=== PATIENT | male | born 1950 | race Caucasian/White ===

== ENCOUNTER → 2017-03-16 | Outpatient (CLI) | payer OTHER, BC ==
[~2017-03-16] MED LIST: ACET-1256 PO; APPLTAB PO; ASPI81TA28 PO; CHOL2000 PO; CINN1CAP2 PO; CIPR-255 PO; CYCL10TA6 PO; DOXA1TAB86 PO; DTRSR4 PO; DUTA0.5C PO; IBUP-1459 PO; METH4PAK PO; MULT-225 PO; OXYC7.5T65 PO; PHEN-775 PO; SILD100T PO; VITAMIN D PO
[2017-03-16 09:40] LABS: BLOOD UREA NITROGEN 17 mg/dl (7-18); BUN/CREATININE RATIO 15.6 (10-20); CALCIUM 8.9 mg/dl (8.5-10.1); CARBON DIOXIDE 27 mmol/L (21-32); CHLORIDE 108 mmol/L (98-107); CHOLESTEROL 190 mg/dl (0-200); GLUCOSE 92 mg/dl (70-99); POTASSIUM 3.9 mmol/L (3.5-5.1); SODIUM 143 mmol/L (136-145); TRIGLYCERIDES 95 mg/dl (0-150); VERY LOW DENSITY LIPOPROT CALC 19 mg/dl
[2017-03-16 09:44] LABS: CHOLESTEROL/HDL RATIO 2.9; HDL CHOLESTEROL 65 mg/dl; LDL CHOLESTEROL CALCULATED 106 mg/dl
[2017-03-16 09:49] LABS: ESTIMATED AVERAGE GLUCOSE 128 mg/dl; HA1C FLAG Normal (Normal)
== END | disposition home or self-care (01) ==
LOC: C.LAB1850 07:08
PROVIDERS: ATTEND Internal Medicine
DX: R73.09 Other abnormal glucose (principal); R73.01 Impaired fasting glucose; N40.1 Benign prostatic hyperplasia with lower urinary tract symptoms

== ENCOUNTER → 2017-04-18 | Outpatient (CLI) | payer OTHER, BC ==
[~2017-04-18] MED LIST changes: -CIPR-255 PO; -DTRSR4 PO; -DUTA0.5C PO; -OXYC7.5T65 PO; -PHEN-775 PO
--- NOTE | 2017-04-18 14:44 | DIAGNOSTIC IMAGING REPORT ---
CHEST 2 VIEWS ROUTINE CLINICAL HISTORY: 67 year-old Male presenting with shortness of breath on exertion. TECHNIQUE: PA and lateral views the chest were obtained. COMPARISON: None. FINDINGS: Cardiomediastinal silhouette normal. Two punctate hyperdense nodules noted in the right lower lung, likely old calcified granulomas. No other focal infiltrate. No pleural effusion or pneumothorax. Osseous structures and upper abdomen normal. IMPRESSION: 1. No acute cardiopulmonary disease. Electronically signed by: Raul Pizarro 04/18/2017 2:42 PM Dictated Date/Time: 04/18/2017 2:40 PM
== END | disposition home or self-care (01) ==
LOC: C.RAD1850 14:32
PROVIDERS: ATTEND Internal Medicine
DX: R06.02 Shortness of breath (principal)

== ENCOUNTER 2017-06-23 05:34 | Emergency (ER) | payer OTHER, BC ==
[~2017-06-23] VITALS: Ht 167.6 cm; Wt 68.4 kg
[~2017-06-23 05:34] MED LIST changes: -APPLTAB PO; -CHOL2000 PO; -CINN1CAP2 PO; -CYCL10TA6 PO; -METH4PAK PO
[2017-06-23 05:43] VITALS: TEMP 36.6; Ht 167.6 cm; Wt 68.4 kg
[2017-06-23] MEDS ORDERED: DEXAMETHASONE INJ 8 MG in SYRINGE 0 ML IV STA (05:44)
[2017-06-23] MEDS ORDERED: CYCLOBENZAPRINE HCL 5 MG TAB PO STA (05:44)
[2017-06-23] MEDS ORDERED: KETOROLAC TROMETHAMINE 30 MG/ML VIAL IV STA (05:44)
[2017-06-23] MEDS ORDERED: DEXAMETHASONE SOD INJ 4 MG/ML VIAL ONE (06:00)
[2017-06-23] MEDS ORDERED: CHOL2000 PO (06:04)
--- NOTE | 2017-06-23 06:04 | EMERGENCY ROOM VISIT NOTE ---
History Report prepared by Deyanira: Javier Flores Under the Supervision of: Dr. Jose Vann D.O. First contact with patient: 05:40 Stated Complaint: BACK PAIN History of Present Illness The patient is a 67 year old male who presents to the Emergency Room with complaints of persistent back pain beginning shortly prior to arrival. He has a history of chronic back pain associated with herniated discs. He took hydrocodone for his symptoms prior to going to sleep last night. He states that he woke up with his pain shortly prior to arrival and took Tylenol. The patient states "I think I am having muscle spasms". He also complains of difficulty with urination, nausea and shortness of breath. Source of History: patient Onset: shortly prior to arrival Position: back Timing: other (persistent) Associated Symptoms: + SOB, + nausea, + urinary symptoms (difficulty with urination) Review of Systems See HPI for pertinent positives and negatives. A total of ten systems were reviewed and were otherwise negative. Past Medical & Surgical Medical Problems: (1) Herniated disc Family History No pertinent family history stated. Social History Smoking Status: Never Smoker Marital Status: Occupation Status: other Current/Historical Medications Scheduled Apple Cider Vinegar (Apple Cider Vinegar), MG PO DAILY Aspirin (Aspirin Ec), 81 MG PO DAILY Cholecalciferol (Vitamin D3), 2,000 UNITS PO DAILY Cinnamon (Cinnamon), 1,000 MG PO DAILY Doxazosin Mesylate (Doxazosin Mesylate), 4 MG PO HS Multiple Vitamin (Multi-Day Vitamins), 1 TAB PO DAILY Sildenafil Citrate (Viagra), 100 MG PO PRN Scheduled PRN Ibuprofen (Motrin), 400 MG PO BID PRN for Pain Allergies Coded Allergies: No Known Allergies (Unverified , 10/01/13) Physical Exam Vital Signs Date Time Temp Pulse Resp B/P (MAP) Pulse Ox O2 Delivery O2 Flow Rate FiO2 06/23/17 05:43 36.6 87 16 160/83 98 Room Air Physical Exam GENERAL: Awake, alert, well-appearing, in no distress HENT: Normocephalic, atraumatic. Oropharynx unremarkable. EYES: Normal conjunctiva. Sclera non-icteric. NECK: Supple. No nuchal rigidity. FROM. No JVD. RESPIRATORY: Clear to auscultation. CARDIAC: Regular rate, normal rhythm. Extremities warm and well perfused. Pulses equal. ABDOMEN: Soft, non-distended. No tenderness to palpation. No rebound or guarding. No masses. RECTAL: Deferred. MUSCULOSKELETAL: Chest examination reveals no tenderness. No joint edema. The back is symmetrical on inspection without obvious abnormality. Perispinal tenderness to palpation, right greater than left. Muscle spasms present in the right lumbar region. LOWER EXTREMITIES: Calves are equal size bilaterally and non-tender. No edema. No discoloration. NEURO: Normal sensorium. No sensory or motor deficits noted. Able to move legs. NVI distally. SKIN: No rash or jaundice noted. Medical Decision & Procedures Medications Administered Medications (Trade) Dose Ordered Sig/Hugo Route Start Time Stop Time Status Last Admin Dose Admin Ketorolac Tromethamine (Toradol Inj) 30 mg NOW STAT IV 06/23/17 05:44 06/23/17 05:46 DC 06/23/17 06:04 30 MG Cyclobenzaprine HCl (Flexeril Tab) 5 mg ONE STAT PO 06/23/17 05:44 06/23/17 05:46 DC 06/23/17 06:03 5 MG Dexamethasone Sodium Phosphate (Decadron Inj) 8 mg STK-MED ONCE .ROUTE 06/23/17 06:00 06/23/17 06:01 DC 06/23/17 06:00 8 MG ED Course 0541: The patient was evaluated in room B7. A complete history and physical exam was performed. 0544: Ordered Dexmethasone Sodium Phosphate 8 mg/Syringe 2 mL @ 1 mL/min I, Flexeril Tab 5 mg PO, Toradol Inj 30 mg IV. 0625: I reevaluated the patient. Discussed results and discharge instructions: he verbalized understanding and agreement. The patient is ready for discharge. Medical Decision Differential diagnoses include but are not limited to; sprain, strain, muscle spasm, herniated disc, doubt cauda equina syndrome. Patient feels much better on repeat examination at 6:35 AM he is ambulatory states decreased pain and muscle spasm. I suspect this is more a lumbosacral muscle spasm there is no evidence of spinal cord injury as the patient can ambulate has no other difficulties. Impression Primary Impression: Muscle spasm of back Scribe Attestation The scribe's documentation has been prepared under my direction and personally reviewed by me in its entirety. I confirm that the note above accurately reflects all work, treatment, procedures, and medical decision making performed by me. Departure Information Dispostion Home / Self-Care Prescriptions Methylprednisolone (MEDROL DOSEPAK) 4 Mg Bob 1 PKT PO UD for 6 Days, #1 PKT Prov: Jose Vann, DO 06/23/17 Cyclobenzaprine Hcl (FLEXERIL) 10 Mg Tab 10 MG PO TID Y for Muscle Spasms, #21 TAB Prov: Jose Vann, DO 06/23/17 Referrals Pro,Pradeep Mathews M.D. (PCP) Patient Instructions ED Spasm Muscle, My [facility]
[2017-06-23] MEDS ORDERED: CINN1CAP2 PO (06:05)
[2017-06-23] MEDS ORDERED: APPLTAB PO (06:07)
[2017-06-23] MEDS ORDERED: METH4PAK PO (06:38)
[2017-06-23] MEDS ORDERED: CYCL10TA6 PO (06:38)
[2017-06-23 06:50] VITALS: BP 133/85; PULSE 75; O2SAT 94
== END 2017-06-23 06:57 | disposition home or self-care (01) ==
LOC: EDBD 05:34 → C.EDB 05:36
DX: M62.830 Muscle spasm of back (principal); G89.29 Other chronic pain; Z79.82 Long term (current) use of aspirin; Z79.899 Other long term (current) drug therapy

== ENCOUNTER → 2017-06-29 | Outpatient (CLI) | payer OTHER, BC ==
[~2017-06-29] MED LIST changes: -ACET-1256 PO; +APPLTAB PO; +CHOL2000 PO; +CINN1CAP2 PO; +CYCL10TA6 PO; +METH4PAK PO; -VITAMIN D PO
== END | disposition home or self-care (01) ==
LOC: C.LAB1850 14:01
PROVIDERS: ATTEND Nurse Practitioner Family
DX: R35.0 Frequency of micturition (principal)

== ENCOUNTER → 2017-07-08 | Outpatient (CLI) | payer OTHER, BC ==
[~2017-07-08] MED LIST changes: -CYCL10TA6 PO; -METH4PAK PO
== END | disposition home or self-care (01) ==
LOC: C.PATHSPEC 15:53
PROVIDERS: ATTEND Nurse Practitioner Family
DX: R30.0 Dysuria (principal); R31.9 Hematuria, unspecified

== ENCOUNTER → 2017-09-07 | Outpatient (CLI) | payer OTHER, BC ==
[~2017-09-07] MED LIST changes: +ACET-1256 PO; -APPLTAB PO; -CHOL2000 PO; +CIPR-255 PO; +DTRSR4 PO; +DUTA0.5C PO; +OXYC7.5T65 PO
== END | disposition home or self-care (01) ==
LOC: C.LABSPEC 17:24
PROVIDERS: ATTEND Urology
DX: N40.1 Benign prostatic hyperplasia with lower urinary tract symptoms (principal); R33.8 Other retention of urine

== ENCOUNTER → 2017-09-26 | Outpatient (CLI) | payer OTHER, BC | END | disposition home or self-care (01) | LOC: C.LABSPEC 17:14 | PROVIDERS: ATTEND Nurse Practitioner Adult Health | DX: R30.0 Dysuria (principal); N39.0 Urinary tract infection, site not specified ==

== ENCOUNTER → 2017-10-11 | Outpatient (CLI) | payer OTHER, BC | END | disposition home or self-care (01) | LOC: C.LABSPEC 16:47 | PROVIDERS: ATTEND Urology | DX: Z12.5 Encounter for screening for malignant neoplasm of prostate (principal); R33.8 Other retention of urine; N39.0 Urinary tract infection, site not specified ==

== ENCOUNTER → 2017-11-22 | Outpatient (CLI) | payer OTHER, BC ==
[2017-11-22 11:06] LABS: BASO % 0.3 %; BASO ABS # 0.02 K/uL (0-0.2); EOS % 1.9 %; EOS ABS # 0.12 K/uL (0-0.5); HEMATOCRIT 42.6 % (42-52); HEMOGLOBIN 14.7 g/dL (14.0-18.0); IG# 0.01 K/uL (0.00-0.02); LYMPH % 32.8 %; LYMPH ABS # 2.04 K/uL (1.2-3.4); MEAN CELL VOLUME 88.9 fL (80-100); MEAN CORPUSCULAR HEMOGLOBIN 30.7 pg (25-34); MEAN CORPUSCULAR HGB CONC 34.5 g/dl (32-36); MEAN PLATELET VOLUME 9.7 fL (7.4-10.4); MONO % 9.6 %; NEUT % 55.2 %; NEUT ABS # 3.43 K/uL (1.4-6.5); PLATELET COUNT 215 K/uL (130-400); RED CELL DISTRIBUTION WIDTH CV 12.9 % (11.5-14.5); RED CELL DISTRIBUTION WIDTH SD 41.1 fL (36.4-46.3); WHITE BLOOD COUNT 6.22 K/uL (4.8-10.8)
[2017-11-22 11:25] LABS: BLOOD UREA NITROGEN 21 mg/dl (7-18); CALCIUM 8.6 mg/dl (8.5-10.1); CARBON DIOXIDE 28 mmol/L (21-32); CREATININE 1.05 mg/dl (0.60-1.40); GLUCOSE 98 mg/dl (70-99); POTASSIUM 3.9 mmol/L (3.5-5.1); SODIUM 138 mmol/L (136-145)
[2017-11-22 11:36] LABS: CHOLESTEROL 177 mg/dl (0-200); LDL CHOLESTEROL CALCULATED 97 mg/dl
[2017-11-22 12:24] LABS: HEMOGLOBIN A1C 6.1 % (4.5-5.6)
== END | disposition home or self-care (01) ==
LOC: C.LABBC 07:21
PROVIDERS: ATTEND Internal Medicine
DX: R35.0 Frequency of micturition (principal); Z13.29 Encounter for screening for other suspected endocrine disorder; Z13.220 Encounter for screening for lipoid disorders; R73.01 Impaired fasting glucose; R06.02 Shortness of breath; Z13.0 Encounter for screening for diseases of the blood and blood-forming organs and certain disorders involving the immune mechanism

== ENCOUNTER → 2017-11-24 | Outpatient (CLI) | payer OTHER, BC | END | disposition home or self-care (01) | LOC: C.LAB1850 12:51 | PROVIDERS: ATTEND Internal Medicine | DX: Z87.448 Personal history of other diseases of urinary system (principal) ==